=== PATIENT | male | born 1995 | race Asian ===

== ENCOUNTER 2016-11-05 16:52 | Emergency (ER) | payer BC, OTHER ==
[~2016-11-05] VITALS: Ht 172.7 cm; Wt 77.1 kg
[~2016-11-05 16:52] MED LIST: PROM25TA10 PO; SUMA50TA3 PO
[2016-11-05 17:16] VITALS: BP 126/65
[2016-11-05] MEDS ORDERED: CEPH500T PO (17:36)
--- NOTE | 2016-11-05 17:37 | PHYS DOC ---
Past Medical History Past Medical History: Other Additional Past Medical Histor: drug addiction Past Surgical History: No Surgical History Alcohol Use: None Drug Use: Other Adult General Chief Complaint Chief Complaint: INSECT BITE [facility] HPI Patient is a 21 year old male presents to the emergency department stating that he was bit by an insect on his torso. He points to the area of the epigastric. He has a small less than dime size area that is red with a center in the middle that appears to be scabbed over. Patient states she squeezed the area and had some white eggs come out of it. Patient states that it's been very painful. He denies any fever, chills or any nausea vomiting. He has not taken anything for the pain or discomfort. Patient is unsure when his last tetanus immunization occurred Review of Systems Review of Systems Constitutional: Denies fever or chills [] Eyes: Denies change in visual acuity, redness, or eye pain [] HENT: Denies nasal congestion or sore throat [] Respiratory: Denies cough or shortness of breath [] Cardiovascular: No additional information not addressed in HPI [] GI: Denies abdominal pain, nausea, vomiting, bloody stools or diarrhea [] : Denies dysuria or hematuria [] Musculoskeletal: Denies back pain or joint pain [] Integument: Denies rash or skin lesions. Complaint of insect bite to the torso [ ] Neurologic: Denies headache, focal weakness or sensory changes [] Endocrine: Denies polyuria or polydipsia [] Current Medications Current Medications Current Medications Medications (Trade) Dose Ordered Sig/Korin Start Time Stop Time Status Last Admin Dose Admin Diphtheria/ Tetanus/Acell Pertussis (Boostrix) 0.5 ml ONCE ONCE 11/05/16 17:45 11/05/16 17:46 UNV Allergies Allergies Allergies Coded Allergies Type Severity Reaction Last Updated Verified No Known Drug Allergies 12/27/14 No Physical Exam Physical Exam Constitutional: Well developed, well nourished, no acute distress, non-toxic appearance. [] HENT: Normocephalic, atraumatic, bilateral external ears normal, oropharynx moist, no oral exudates, nose normal. [] Eyes: PERRLA, EOMI, conjunctiva normal, no discharge. [] Neck: Normal range of motion, no tenderness, supple, no stridor. [] Cardiovascular:Heart rate regular rhythm, no murmur [] Lungs & Thorax: Bilateral breath sounds clear to auscultation [] Skin: Warm, dry, no erythema, no rash. Patient with an area on the epigastric that appears to be less than a dime size that has a red outer area with the center being dark as though it scabbed over. No drainage or discharge coming from the site. Extremities: No tenderness, no cyanosis, no clubbing, ROM intact, no edema. [] Neurologic: Alert and oriented X 3, normal motor function, normal sensory function, no focal deficits noted. [] Psychologic: Affect normal, judgement normal, mood normal. [] Current Patient Data Vital Signs Vital Signs Date Time Temp Pulse Resp B/P (MAP) Pulse Ox O2 Delivery O2 Flow Rate FiO2 11/05/16 17:16 98.0 92 18 99 Room Air 98.0 EKG EKG [] Radiology/Procedures Radiology/Procedures [] Course & Med Decision Making Course & Med Decision Making Pertinent Labs and Imaging studies reviewed. (See chart for details) Patient will be updated with a tetanus immunization here in the emergency department. He'll be placed on Keflex with recommendations for Tylenol and ibuprofen for pain and discomfort. Recommended warm moist packs to the area 4-5 times a day. Recommended following up with the primary care physician in the next 3-5 days. Signs symptoms to return back to emergency parents been provided. All questions and concerns have been answered at patient's bedside. Patient is requesting a work note. He was provided with a work note that he can return to work now. [] Dragon Disclaimer Dragon Disclaimer This electronic medical record was generated, in whole or in part, using a voice recognition dictation system. Departure Departure Impression: Primary Impression: Abscess Disposition: 01 HOME, SELF-CARE Condition: STABLE Referrals: NO PCP (PCP) Patient Instructions: Abscess, Prtd-[id number] Additional Instructions: Activity as tolerated. Medications as prescribed. Tylenol or ibuprofen for pain and discomfort. Warm moist packs to the area 4-5 times a day for 20 minutes at a time. Follow-up to primary care physician in the next 3-5 days. Return back to emergency prior signs symptoms of become worse. Scripts Cephalexin (CEPHALEXIN) 500 Mg Tablet 1 TAB PO BID, #20 TAB Prov: ANNIKA BUSH MANAGER FLOOR 11/05/16 ANNIKA BUSH APRN Nov 05, 2016 17:37
[2016-11-05] MEDS ORDERED: DIPHTH,PERTUSS(ACELL),TET TOX 0.5 ML DISP.SYRIN. VAX IM ONE (17:45)
== END 2016-11-05 17:57 | disposition home or self-care (01) ==
LOC: ER 16:52
DX: L02.211 Cutaneous abscess of abdominal wall (principal)
CPT/HCPCS: 90471; 90715; 99283-25